=== PATIENT | male | born 1990 | race Caucasian/White ===

== ENCOUNTER 2022-08-29 07:36 | Emergency (ER) | payer OTHER ==
[2022-08-29 08:01] VITALS: BP 105/70; PULSE 99; RESP 18; TEMP 98; BMI 25.0
== END 2022-08-29 09:00 | disposition home or self-care (01) ==
LOC: JER 07:36 → JERFT 07:36
DX: L03.115 Cellulitis of right lower limb (principal)
CPT/HCPCS: 73610-TC-RT-FY; 73630-TC-RT-FY; 99281-25